=== PATIENT | male | born 1990 | race Caucasian/White ===

== ENCOUNTER 2019-04-07 21:04 | Observation (INO) | payer SELFPAY ==
[~2019-04-07 21:04] MED LIST: ISOVUE-370 76%-LOCM 1 ML ONE
[2019-04-07 21:52] LABS: #Eosinphils 0.2 thou/uL (0.0-0.7); #Lymphocytes 0.9 thou/uL (1.20-3.40); #Monocytes 1.4 thou/uL (0.11-0.59); #Neutrophils 7.6 thou/uL (1.40-6.50); %Eosinophils 1.5 % (0.0-10.0); %Lymphocytes 8.6 % (21.0-51.0); %Monocytes 13.8 % (0.0-10.0); %Neutrophils 76.1 % (42.0-75.0); Hemoglobin 17.3 g/dL (14.0-18.0); Mean Corpuscular HGB CONC 33.7 g/dL (32.0-36.0); Mean Corpuscular Volume 97.9 fL (78.0-98.0); Mean Platelet Volume 7.7 fL (7.4-10.4); Platelet Count 266 thou/uL (130-400); RBC Distribution Width 11.6 % (11.5-14.5); Red Blood Cell (RBC) Count 5.24 mill/uL (4.70-6.10)
[2019-04-07 22:13] LABS: ALT (SGPT) 31 U/L (8-55); AST (SGOT) 16 U/L (5-34); Alkaline Phosphatase 79 U/L (40-150); Anion Gap 18 mmol/L (10-20); BUN (Urea Nitrogen) 17 mg/dL (8.9-20.6); Bilirubin, Total 0.7 mg/dL (0.2-1.2); Calc. Creatinine Clearance 0 mL/min (70-130); Calcium 10.7 mg/dL (7.8-10.44); Carbon Dioxide 27 mmol/L (22-29); Chloride 98 mmol/L (98-107); Estimated GFR-MDRD 87; Globulin 3.2 g/dL (2.4-3.5); Glucose 127 mg/dL (70-105); Lipase 8 U/L (8-78); Potassium 4.6 mmol/L (3.5-5.1); Protein, Total 8.2 g/dL (6.0-8.3); Sodium 138 mmol/L (136-145)
[2019-04-07] MEDS ORDERED: Morphine 4 MG/ML VIAL ONE (22:50)
[2019-04-07] MEDS ORDERED: Benzocaine 20% Spray 60 ML CAN ONE (22:51)
[2019-04-07] MEDS ORDERED: Ondansetron PF 4 MG/2 ML Vial ONE (22:51)
--- NOTE | 2019-04-07 23:01 | CT ---
Contrast-enhanced images abdomen and pelvis. HISTORY: Abdominal pain. Contrast CT images of the abdomen pelvis obtained. IV contrast was given. The lung bases are unremarkable. There is massive dilatation of the small bowel which also appears to be enhancing. This is concerning for bowel obstruction or enteritis. Small pockets of gas seen outside of the small bowel likely representing a compressed and minimally gas-filled areas of descending colon. The enteric colon is ma rkedly decompressed and no significant stool seen. No significant amount of ascites seen. IMPRESSION: Massively distended loops of small bowel with enhancement concerning for bowel obstructio n.
[2019-04-08] MEDS ORDERED: Ondansetron PF 4 MG/2 ML Vial IVP PRN (01:20)
[2019-04-08] MEDS ORDERED: Morphine 4 MG/ML VIAL SLOW IVP PRN (01:21)
[2019-04-08] MEDS ORDERED: Sodium Chloride 0.9% 1,000 ML IV SCH (01:30)
[2019-04-08 02:53] LABS: Lactic Acid 2.4 mmol/L (0.5-2.2)
[2019-04-08 03:01] VITALS: BMI 21.7
[2019-04-08 08:16] VITALS: BP 143/82; TEMP 98.2
[2019-04-08] MEDS ORDERED: Lactated Ringer's 1,000 ML IV SCH (10:15)
--- NOTE | 2019-04-08 11:45 | RAD ---
Chest one view Abdomen 2 views HISTORY: Abdominal pain and chest pain. Abnormal CT. Obstruction. COMPARISON: CT from 04/07/2019. FINDINGS: Cardiac silhouette and pulmonary vasculature are unremarkable. Mediastinum is midline. No c onfluent airspace consolidation or evidence of pneumothorax. Nasogastric tube descends the abdomen. Gas and stool over the colon and rectum. Nondilated gas-filled loops of small bowel are apparent thro ughout the abdomen. No differential air-fluid levels or evidence of free subdiaphragmatic gas. IMPRESSION: Interval decompression the small bowel. Findings not currently suggestive of obstruction. Small bowel follow-through is pending.
[2019-04-08] MEDS: Lactated Ringer's 1,000 ML IV SCH ×2 (13:11→17:07)
--- NOTE | 2019-04-08 15:15 | RAD ---
EXAM: Small bowel follow-through HISTORY: Small bowel obstruction COMPARISON: None FINDINGS: A Gastrografin small bowel follow-through was performed. The small bowel loops are normal i n caliber without distention. Contrast passes through the small bowel loops to the colon by 2.5 hours. IMPRESSION: No evidence of complete bowel obstruction
[2019-04-08] MEDS ORDERED: MD-Gastroview 120 ML BOT ONE (15:56)
--- NOTE | 2019-04-08 18:08 | HP ---
HISTORY OF PRESENT ILLNESS: Esteban Weldon is a 28-year-old male patient just moved here from [place]. He moved here with his , then staying with his in-laws. He is not employed at this time. He has worked previously as a welder railcar mechanic and other occupations. The patient reports acute onset yesterday morning of abdominal pain, nausea, vomiting, and diarrhea. He has not had any prior abdominal operations. He had a CAT scan obtained suggesting possible bowel obstruction and NG tube was placed and overnight, his drain has significant amount of fluid without him consuming ice chips. The output has not been recorded from the graphics, but he has more than 500 in his canister. No laboratories were obtained this morning. His lactic acid was 4.3 on admission, 2.4 this morning. CBC and basic metabolic were normal. ALLERGIES: NONE. SOCIAL HISTORY: Tobacco less than a half pack a day. Alcohol, none. MEDICATIONS: None routinely, PAST SURGICAL AND MEDICAL HISTORY: Noncontributory. PHYSICAL EXAMINATION: VITAL SIGNS: 6 feet, 160 pounds, 21 BMI, 98.2, 59, and 143/82. HEAD, EYES, EARS, NOSE, AND THROAT: Unremarkable. LUNGS: Clear to auscultation. CARDIAC: Rhythm. Murmur or gallop. ABDOMEN: Soft, flat, and nontender. No masses. No hernias. EXTREMITIES: Unremarkable. LABORATORY DATA: Laboratories as noted above. ASSESSMENT AND PLAN: Nausea, vomiting, and diarrhea. CAT scan suggested bowel obstruction. NG tube has been placed with more than 500 out overnight. He feels much better this morning. We will obtain abdominal x-rays and small bowel followthrough, and if normal, advance the diet. Anticipate possible discharge home later today. Questions answered. Job ID: [id number]
== END 2019-04-08 18:09 | disposition home or self-care (01) ==
LOC: ERS 21:04 → T4-A 04-08 00:47
PROVIDERS: ADMIT Specialist; ATTEND Specialist
DX: R11.2 Nausea with vomiting, unspecified (principal); R19.7 Diarrhea, unspecified; R10.31 Right lower quadrant pain; F17.290 Nicotine dependence, other tobacco product, uncomplicated; F17.210 Nicotine dependence, cigarettes, uncomplicated
CPT/HCPCS: 36415; 74022; 74177; 74250; 80053; 83605; 83690; 85025; 96361; 96374; 96375; 96376; G0378; J2270; J2405; Q9963; Q9966